=== PATIENT | female | born 1980 | race Caucasian/White ===

== ENCOUNTER 2022-09-15 10:11 | Emergency (ER) | payer OTHER ==
[~2022-09-15] VITALS: Ht 157.5 cm; Wt 79.1 kg
[~2022-09-15 10:11] MED LIST: ALPR-623 PO; CALC-336; DEXT350P; MULT-1085 PO; POTA99TA25; PSYL3.4P5 PO
[2022-09-15 11:03] LABS: CLARITY,URINE CLEAR (Clear); COLOR,URINE YELLOW (Yellow); GLUCOSE, URINE NEGATIVE (Neg); KETONES,URINE TRACE mg/dl (Neg); LEUKOCYTE ESTERASE ,URINE NEGATIVE (Neg); NITRITES, URINE NEGATIVE (Neg); OCCULT BLOOD,URINE NEGATIVE (Neg); PROTEIN,URINE 30 mg/dl (Neg); UROBILINOGEN,URINE 0.2 E.U/dL (0.2-1.0)
[2022-09-15 11:05] LABS: URINE HCG NEGATIVE (NEG)
[2022-09-15 11:14] LABS: UA COLLECTION TYPE CLN CATCH MIDSTREAM
[2022-09-15 11:15] LABS: BACTERIA,URINE FEW /HPF (Neg); RBC,URINE NONE SEEN /HPF (0-2); SQUAMOUS EPITHELIAL CELL,UR MANY /LPF (FEW); WBC,URINE 0-4 /HPF (0-4)
[2022-09-15 11:16] LABS: MUCUS STRANDS FEW /LPF (Neg)
[2022-09-15 11:19] LABS: BASOPHILS % (AUTO) 0.3 % (0-1); EOSINOPHILS % (AUTO) 0.1 % (0-6); HEMATOCRIT 46.1 % (35.0-45.0); HEMOGLOBIN 15.9 g/dl (12.0-16.0); LYMPHOCYTES # (AUTO) 0.7 X10'3 (1.1-4.8); LYMPHOCYTES % (AUTO) 10.2 % (21-51); MEAN CORPUSCULAR HEMOGLOBIN 32.4 PG (27.0-31.0); MEAN CORPUSCULAR HGB CONC 34.4 g/dL (33.0-36.5); MEAN CORPUSCULAR VOLUME 94.2 FL (78-98); MEAN PLATELET VOLUME 7.4 FL (7.4-10.4); MONOCYTES # (AUTO) 0.5 X10'3 (0-0.9); NEUTROPHILS # (AUTO) 5.6 X10'3 (1.8-7.7); NEUTROPHILS % (AUTO) 81.4 % (42-75); PLATELET COUNT 252 X10'3 (140-440); RED CELL DISTRIBUTION WIDTH 13.1 % (11.5-14.5); WHITE BLOOD COUNT 6.9 X10'3 (4.5-11.0)
[2022-09-15 11:29] LABS: ALANINE AMINOTRANSFERASE 49 U/L (12-78); ALBUMIN 3.7 G/DL (3.4-5.0); ALBUMIN/GLOBULIN RATIO 0.9 (1.1-1.5); ALKALINE PHOSPHATASE 93 IU/L (46-116); ANION GAP 12 (8-16); ASPARTATE AMINO TRANSFERASE 50 U/L (10-37); BILIRUBIN,TOTAL 0.4 MG/DL (0.1-1.0); BLOOD UREA NITROGEN 9 MG/DL (7-18); CALCIUM 9.6 MG/DL (8.5-10.1); CHLORIDE 98 MMOL/L (99-107); CREATININE 0.82 MG/DL (0.40-0.90); GLUCOSE 127 MG/DL (70-104); LIPASE 105 U/L (73-393); POTASSIUM 3.1 MMOL/L (3.5-5.1); SODIUM 135 MMOL/L (135-145); TOTAL CARBON DIOXIDE 25.4 MMOL/L (24-32); TOTAL PROTEIN 7.7 G/DL (6.4-8.2); eGFR 76 ML/MIN
[2022-09-15 13:58] VITALS: BP 130/79
[2022-09-15] MEDS ORDERED: ondansetron/PF 4mg/2ml inj IV ONE (14:15)
[2022-09-15] MEDS ORDERED: normal saline 1000ML IV soln IVB ONE (14:15)
[2022-09-15] MEDS ORDERED: pantoprazole 40 MG vial IV ONE (14:15)
[2022-09-15] MEDS ORDERED: morphine 2 MG/ML inj. syringe IV PRN (14:15)
[2022-09-15] MEDS ORDERED: loperamide 2mg capsule PO ONE ×2 (14:20→14:55)
[2022-09-15] MEDS ORDERED: ondansetron 4mg rapidly disintigrating tab PO STA (14:53)
[2022-09-15] MEDS ORDERED: POTASSIUM BICARB 20meq eff tab 20 MEQ TABLET.EFF PO STA (14:55)
[2022-09-15] MEDS ORDERED: pantoprazole 40mg Tablet.DR PO ONE (14:55)
[2022-09-15] MEDS ORDERED: LOPE1TAB46 PO (15:24)
[2022-09-15] MEDS ORDERED: ONDA4TAB12 PO (15:24)
[2022-09-15] MEDS ORDERED: PANT-47 PO (15:24)
[2022-09-15 16:09] LABS: C DIFF SPECIMEN=DIARRHEA? ACCEPTABLE; C DIFFICILE TOXINS A&B NEGATIVE (Neg)
[2022-09-16 10:14] LABS: C DIFF SPECIMEN=DIARRHEA? ACCEPTABLE
[2022-09-16 10:16] LABS: C DIFFICILE TOXINS A&B NEGATIVE (Neg)
== END 2022-09-15 16:28 | disposition home or self-care (01) ==
LOC: ER 10:11
DX: K52.9 Noninfective gastroenteritis and colitis, unspecified (principal); R11.10 Vomiting, unspecified; R10.30 Lower abdominal pain, unspecified; E86.0 Dehydration; Z88.8 Allergy status to other drugs, medicaments and biological substances; Z79.899 Other long term (current) drug therapy
CPT/HCPCS: 36415; 74019; 80053; 81001; 81025; 83690; 85025; 87324; 87449; 99284; J7030